=== PATIENT | male | born 1975 | race Caucasian/White ===

== ENCOUNTER 2022-10-17 15:47 | Emergency (ER) | payer SELFPAY ==
--- NOTE | 2022-10-17 15:45 | RT.EKG_ITS ---
APPROVED REPORT Exam: Resting ECG Reason for Exam: chest pain sob Patient Location: E HR:92 bpm ECG Measurements Heart Rate 92 AXIS FL 135 P 61 QRSd 102 QRS 36 QT 341 T 39 QTc 422 Conclusion Sinus rhythm...normal P axis, V-rate 60- 99. Sinus. Normal axis. No STEMI. I have reviewed and interpreted ECG and agree with software generated interpretation.
--- NOTE | 2022-10-17 15:45 | DI.CT_ITS ---
Exam(s) CT HEAD - STROKE PROTOCOL EXAM: CT HEAD - STROKE PROTOCOL CLINICAL HISTORY: slurred speech, r/o acute cva. TECHNIQUE: Imaging Protocol: Axial computed tomography images with coronal and sagittal reformatted images were created and reviewed COMPARISON: No exams were available for comparison FINDINGS: There are no skull fractures. There is no fluid in the visualized paranasal sinuses. There is no evidence of intracranial hemorrhage, mass effect, or shift of midline structures. There are no extra-axial fluid collections. Asymmetry in the size of the lateral ventricles noted which is probably normal variant. There is no blood within the ventricular system nor within the basal ciste rns. IMPRESSION: No acute intracranial findings on this noninfused CT scan of the brain. RADIATION DOSE DELIVERED: 709.66mGy.cm Total DLP DATA REPOSITORY: All CT scans at this facility are submitted to the National Radiology Data Registry (NRDR) Dose Index Registry (DIR) with the [employer] ([employer]). RADIATION OPTIMIZATION: All CT scans at this facility use at least one of these dose optimization te chniques: automated exposure control; mA and/or kV adjustment per patient size (includes targeted exa ms where dose is matched to clinical indication); or iterative reconstruction.
[2022-10-17 15:48] VITALS: BP 123/68; PULSE 92; RESP 18; TEMP 37.4; O2SAT 100
--- NOTE | 2022-10-17 15:48 | DI.RAD_ITS ---
Exam(s) XR CHEST 2V PA LATERAL EXAM: XR CHEST 2V PA LATERAL CLINICAL HISTORY: chest pain, r/o acute disease. TECHNIQUE: 2D digital imaging was performed. COMPARISON: No exams were available for comparison FINDINGS: 2 views: Heart size is normal. The mediastinum is not widened. Lungs are clear. No infiltrates nor pleural effusions. IMPRESSION: No acute pulmonary findings. DATA REPOSITORY: RADIATION DOSE DELIVERED:
[2022-10-17 16:13] LABS: Abs Immature Grans 0.02 10^3/uL (0.0-0.06); Absolute Basophil Count 0.03 10^3/uL (0.0-0.2); Absolute Lymphocyte Count 1.06 10^3/uL (1.2-3.4); Absolute Monocyte Count 0.57 10^3/uL (0.1-0.8); Absolute Neutrophil Count 7.39 10^3/uL (1.2-6.7); Basophils % 0.3; Eosinophils % 1.1; HGB 12.6 g/dL (13.5-17.5); Immature Grans % 0.2; Lymphocytes % 11.6; MCH 25.3 pg (27.0-33.0); MCHC 32.3 % (32.0-36.0); MCV 78 fL (80-95); MPV 9.4 fL (8.0-11.0); Monocytes % 6.2; Neutrophils % 80.6; Platelet Count 358 10^3/uL (130-400); RBC 4.99 10^6/uL (4.36-5.78); RDW 15.8 % (11.8-14.1); RDW-SD 44.4 fL; WBC 9.17 10^3/uL (4.4-10.8)
--- NOTE | 2022-10-17 16:20 | DI.VRAD_ITS ---
PROCEDURE INFORMATION: Exam: CT Head Without Contrast Exam date and time: 10/17/2022 4:12 PM Age: 47 years old Clinical indication: Stroke-like symptoms; Speech disturbance; Additional info: R/O acute CVA TECHNIQUE: Imaging protocol: Computed tomography of the head without contrast. Other technique: STROKE PROTOCOL was implemented. COMPARISON: No relevant prior studies available. FINDINGS: Brain: Normal. No hemorrhage. Unremarkable white matter. No mass effect. Cerebral ventricles: Asymmetry of the ventricular system most likely represents normal variant Paranasal sinuses: Visualized sinuses are unremarkable. No fluid levels. Mastoid air cells: Visualized mastoid air cells are well aerated. Bones/joints: Unremarkable. No acute fracture. Soft tissues: Unremarkable. IMPRESSION: No acute intracranial abnormality. ASSESSMENT: ASPECTS ([place] Stroke Program Early CT Score) is 10. Dictated and Authenticated by: Erendira Sherwood MD. Ordering:KERI Castelan MD
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
[2022-10-17 16:36] LABS: ALT 34 U/L (16-63); AST 26 U/L (15-37); Alkaline Phosphatase 132 U/L (46-116); Anion Gap 7.1 mmol/L (3-11); BUN 18 mg/dL (7-18); Bilirubin, Total 0.2 mg/dL (0.2-1.0); CO2 26.9 mmol/L (21.0-32.0); CREATININE 0.6 mg/dL (0.70-1.30); Calcium 8.7 mg/dL (8.5-10.1); Chloride 103 mmol/L (98-107); Estimated GFR 118.34 (mL/min/1.73m2); Glucose 136 mg/dL (74-106); Lipase 149 U/L (73-393); Potassium 4.5 mmol/L (3.5-5.1); Sodium 137 mmol/L (136-145); Total Protein 7.2 g/dL (6.4-8.2); Troponin I < 50 ng/L (<or=60)
--- OUTSIDE RECORDS SUMMARY | 2022-10-17 16:36 | XMS_ITS | Continuity of Care Document ---
:1975 Author Organization [facility] Address [address] [place] [address]- Care Team Providers Name Role Phone Not on Staff, PCP Primary Care Physician Unavailable Encounter [facility] Date(s): 10/05/22 - 10/06/22 [facility] [address], [place] [address] [place] Discharge Disposition: A-D/C AMA Attending Physician: Talha Devi MD Admitting Physician: Talha Devi MD Referring Physician: Not on Staff, Referring MD Allergies, Adverse Reactions, Alerts Substance Reaction Severity Status Toradol Active Adhesive Bandage Active traMADol Active Medications aspirin 81 mg oral capsule 1 capsule = 81 mg, By Mouth, Every 4 hours, 0 Refills, Maintenance, 10/05/22 18:36:00 EST, Partial fill upon patient request if the prescription is for a schedule II opioid drug. Start Date: 10/05/22 Status: OrderedLipitor 20 mg oral tablet 1 tablet = 20 mg, By Mouth, Daily, # 30 tablet, 0 Refills, Maintenance, 10/05/22 18:36:00 EST, Tablet, Partial fill upon patient request if the prescription is for a schedule II opioid drug. Start Date: 10/05/22 Status: Orderedlisinopril 10 mg oral tablet 10 mg, 1, tablet, By Mouth, Daily, # 30 tablet, Refills 0, Maintenance, 10/05/22 18:35:00 EST, Partial fill upon patient request if the prescription is for a schedule II opioid drug. Start Date: 10/05/22 Status: Orderednitroglycerin 0.3 mg sublingual tablet 1 tablet = 0.3 mg, Sublingual, Every 5 minutes, PRN as needed for chest pain, not to exceed 3 doses/15 min--if pain persists, seek medical attention, # 100 tablet, 0 Refills, Maintenance, 10/05/22 18:36:00 EST, Tablet, Partial fill upon patient reques... Start Date: 10/05/22 Status: Ordered Results Radiology Reports Exam Date Time Procedure Performing Provider Status 10/05/22 1:[address] Angio Neck Hyperacute Lis Powell; Don (Verified) Stroke Notes:(CT Angio Neck Hyperacute Stroke) Reason For Exam: Aneurysm, neck vessel(s);Other:RESULT: CT Angio Neck Hyperacute Stroke CT Angio Head Hyperacute Stroke, CT Angio Neck Hyperacute Stroke Hx of Present Illness: STROKE alert, chest pain, slurred speech left sided weakness started at 1230pm; Reason: Other:; Stroke; Clinical Question(s): Other:; Hematoma Aneurysm / Other: TECHNIQUE: CT angiogram of the head and neck was performed after bolus administration of intravenouscontrast. 100 mL of Omnipaque 300 was administered intravenously. Coronal and sagittal MIP reformatted images were obtained. Additional 3-D images were created on a separate workstation under concurrent supervision by the attending radiologist. All stenoses are measured using NASCET criteria. Weight-based protocol using automatic tube modulation was used to optimize exposure parameters. CTDIvol Body: 16.00 mGy, DLP Body: 752 mGy*cm. COMPARISON: Noncontrast CT head performed concurrently. FINDINGS: CTA OF THE NECK: Arch: There is a three vessel aortic arch. The origins of the supra aortic vessels are patent. Right carotid system: The common carotid and cervical internal carotid arteries are patent. No stenosis (0%) by NASCET criteria. There is no dissection or aneurysm. Left carotid system: The common carotid and cervical internal carotid arteries are patent. No stenosis (0%) by NASCET criteria. There is no dissection or aneurysm. There is a left-dominant vertebral artery system. Right vertebral: No significant stenosis. No evidence of dissection or aneurysm. Left vertebral: No significant stenosis. No evidence of dissection or aneurysm. Other: Soft tissues and bones: No evidence of lymphadenopathy or mass. Subcentimeter thyroid nodularity, not requiring follow-up given the small size. Visualized lung apices are clear. Mild degenerative changes of the cervical spine are noted, without acute osseous abnormality. CTA OF THE HEAD: Anterior circulation: Bilateral intracranial ICAs and their OSCAR and MCA branches are patent. There is no significant stenosis, proximal cutoff, aneurysm, or vascular malformation. Posterior circulation: Bilateral intracranial vertebral arteries, the basilar artery, and bilateral superior cerebellar and posterior cerebral branches are patent. There is partial supply to bothPCAs with hypoplastic P1 segment on each side. There is no significant stenosis, proximal cutoff, aneurysm, or vascular malformation. Veins: Major dural venous sinuses are patent. Other: Soft tissues and bones: No midline shift or effacement of the basal cisterns. No space-occupying hemorrhage. No territorial loss of berger-white matter differentiation. Orbits are unremarkable. No significant opacification in the paranasal sinuses or mastoid air cells.Multiple dental caries and periapical lucencies are noted. IMPRESSION: No proximal occlusion or high grade stenosis in the major arteries of the head and neck. WSN: [id number] Ordering Physician: Hetal Diallo Dictated By: Piper Salgado MD Dictated Date/Time: 10/05/22 4:21 pm Reviewed By: Piper Salgado MD Signed By: Piper Salgado MD Signed Date/Time: 10/05/22 4:21 pm Transcribed By: RENNY Transcribed Date/Time: 10/05/22 1:33 pm Exam Date Time Procedure Performing Provider Status 10/05/22 1:[address] Angio Head Hyperacute Lis Powell (Verified) Stroke Notes:(CT Angio Head Hyperacute Stroke) Reason For Exam: Stroke;Other:RESULT: CT Angio Head Hyperacute Stroke CT Angio Head Hyperacute Stroke, CT Angio Neck Hyperacute Stroke Hx of Present Illness: STROKE alert, chest pain, slurred speech left sided weakness started at 1230pm; Reason: Other:; Stroke; Clinical Question(s): Other:; Hematoma Aneurysm / Other: TECHNIQUE: CT angiogram of the head and neck was performed after bolus administration of intravenouscontrast. 100 mL of Omnipaque 300 was administered intravenously. Coronal and sagittal MIP reformatted images were obtained. Additional 3-D images were created on a separate workstation under concurrent supervision by the attending radiologist. All stenoses are measured using NASCET criteria. Weight-based protocol using automatic tube modulation was used to optimize exposure parameters. CTDIvol Body: 16.00 mGy, DLP Body: 752 mGy*cm. COMPARISON: Noncontrast CT head performed concurrently. FINDINGS: CTA OF THE NECK: Arch: There is a three vessel aortic arch. The origins of the supra aortic vessels are patent. Right carotid system: The common carotid and cervical internal carotid arteries are patent. No stenosis (0%) by NASCET criteria. There is no dissection or aneurysm. Left carotid system: The common carotid and cervical internal carotid arteries are patent. No stenosis (0%) by NASCET criteria. There is no dissection or aneurysm. There is a left-dominant vertebral artery system. Right vertebral: No significant stenosis. No evidence of dissection or aneurysm. Left vertebral: No significant stenosis. No evidence of dissection or aneurysm. Other: Soft tissues and bones: No evidence of lymphadenopathy or mass. Subcentimeter thyroid nodularity, not requiring follow-up given the small size. Visualized lung apices are clear. Mild degenerative changes of the cervical spine are noted, without acute osseous abnormality. CTA OF THE HEAD: Anterior circulation: Bilateral intracranial ICAs and their OSCAR and MCA branches are patent. There is no significant stenosis, proximal cutoff, aneurysm, or vascular malformation. Posterior circulation: Bilateral intracranial vertebral arteries, the basilar artery, and bilateral superior cerebellar and posterior cerebral branches are patent. There is partial supply to bothPCAs with hypoplastic P1 segment on each side. There is no significant stenosis, proximal cutoff, aneurysm, or vascular malformation. Veins: Major dural venous sinuses are patent. Other: Soft tissues and bones: No midline shift or effacement of the basal cisterns. No space-occupying hemorrhage. No territorial loss of berger-white matter differentiation. Orbits are unremarkable. No significant opacification in the paranasal sinuses or mastoid air cells.Multiple dental caries and periapical lucencies are noted. IMPRESSION: No proximal occlusion or high grade stenosis in the major arteries of the head and neck. WSN: [id number] Ordering Physician: Hetal Diallo Dictated By: Piper Salgado MD Dictated Date/Time: 10/05/22 4:21 pm Reviewed By: Piper Salgado MD Signed By: Piper Salgado MD Signed Date/Time: 10/05/22 4:21 pm Transcribed By: RENNY Transcribed Date/Time: 10/05/22 1:33 pm Exam Date Time Procedure Performing Provider Status 10/05/22 1:[address] Head-Hyper Acute Stroke Lis Powell; Auth (Verified) Notes:(CT Head-Hyper Acute Stroke) Reason For Exam: Neuro deficit, acute, stroke suspected;Other:RESULT: CT Head-Hyper Acute Stroke CT Head-Hyper Acute Stroke INDICATION: Hx of Present Illness: STREOKE alert, chest pain, slurred speech left sided weakness started at 1230pm; Reason: Other:; Neuro deficit, acute, stroke suspected; Clinical Question(s): Other:;Hematoma Infarction TECHNIQUE: Noncontrast head CT using axial technique and reconstructed in axial and coronal planes. Iterative reconstruction techniques are used to optimize dose and image quality. CTDIvol Head: 46.80 mGy, DLP Head: 774 mGy*cm. COMPARISON: None. FINDINGS: The visualized sinuses are free from disease. Asymmetry of the left lateral ventricle is likely a normal variant. There is no intracranial hemorrhage, mass effect, or midline shift. No intra-axial fluid collections are identified. The osseous structures are intact. IMPRESSION: There is no acute intracranial abnormality. WSN: [id number] Ordering Physician: Hetal Diallo Dictated By: Annelise Ji MD Dictated Date/Time: 10/05/22 1:20 pm Reviewed By: Annelise Ji MD Signed By: Annelise Ji MD Signed Date/Time: 10/05/22 1:20 pm Transcribed By: RENNY Transcribed Date/Time: 10/05/22 1:18 pm Vital Signs Most recent to oldest 1 2 3 [Reference Range]: Height 185 cm (10/05/22 5:08 PM) Weight 74.5 kg 74.5 kg (10/05/22 6:39 PM) (10/05/22 5:08 PM) Oxygen Saturation [94-100 %] 91 % 91 % 96 % *L* *L* (10/06/22 2:00 A M) (10/06/22 4:00 AM) (10/06/22 3:00 AM) Pulse Rate [55-90 bpm] 84 bpm 89 bpm 73 bpm (10/05/22 5:08 PM) (10/05/22 4:18 PM) (10/05/22 3:45 PM) Body Mass Index [18.5-24.99 21.77 kg/m2 kg/m2] (10/05/22 5:08 PM) Blood Pressure [90-138/55-84 102/63 mm Hg 105/80 mm Hg 101 /66 mm Hg mm Hg] (10/06/22 4:00 AM) (10/06/22 3:00 AM) (10/06/22 2:00 AM) Respiratory Rate [16-30 18 br/min 17 br/min 18 br/mi n br/min] (10/06/22 4:00 AM) (10/06/22 3:00 AM) (10/06/22 2:00 AM) Temperature [96.8-100.4 98.2 DegF 98.4 DegF 97.9 Deg F DegF] (10/05/22 8:00 PM) (10/05/22 5:08 PM) (10/05/22 2:46 PM) Mode of Delivery (Oxygen) Room air Room air Room a ir (10/06/22 4:00 AM) (10/06/22 3:00 AM) (10/06/22 2:00 AM) Blood pressure sites Arm, right Arm, right Arm, right (10/06/22 4:00 AM) (10/06/22 3:00 AM) (10/06/22 2:00 AM) Temperature Route Oral Oral Oral (10/05/22 8:00 PM) (10/05/22 5:08 PM) (10/05/22 2:46 PM) Dry Weight 74.5 kg (10/05/22 5:08 PM) Weight Obtained Via Bed scale Bed scale (10/05/22 6:39 PM) (10/05/22 5:08 PM) Admission evaluation note Pradeep SCHROEDER, Juan Sandoval: PERFORM, MODIFY, MODIFY Event Display: Admission Note Authored Date: Patient: ??CHA ARIAS ? Age:??47 Years?Sex:??Male?:??1975?? Chief Complaint/Reason for Consultation from Jessie, sudden onset chest pressure radiating to L arm, cardiac hx, ran out of Nitro recently, denies SOB, given ASA and Nitro in route History of Present Illness Cha is a 47-year-old male with PMH significant for prior CVA (2018 and 2019 for left-sided weakness with symptoms resolving in 24 hours, received tPA in [place]) hypertension, hyperlipidemia and current cigarette smoker who presented to ED with left-sided weakness, received tenecteplase and has been transferred to ICU for close monitoring. ?? According the patient, he was on a shopping trip to [place] in [place] where he bought new gloves.?? He was having a great time, walking out to the [facility] next-door but then he fell to the ground due to significant left- sided weakness.?? Preceding that he also had some chest pain.?? Of note, patient does have occasional chest pain, did not describe any typical symptoms but does take sublingual nitroglycerin/once a month.?? He also repeated decree sensation on the left side of the face and the tingling sensation in the left leg.?? Reports smoking a pack of cigarettes a day, has smoked for many years with no intentions to stop smoking.?? He is compliant with his medications.?? Did inquire about the difference in tenecteplase andtPA.?? 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 Very adamant and requesting an order for a regular diet with anika ble portions. ?? The ED, acute stroke was activated and patient was taken to CAT scan.?? CT angio did not show any acute large vessel occlusion or stenosis.?? He also developed a right-sided headache at the same time which was different from his migraine headaches.?? Evaluated by neuro stroke team with recommendations for tenecteplase.?? Administration time 1405 Review of Systems Detailed review of system appears to be unremarkable except what has been mentioned above. Objective Measurements?? Height: 185 cm (10/05/22) Weight: 74.5 kg (10/05/22) Dry Weight: 74.5 kg (10/05/22) Body Mass Index: 21.77 kg/m2 (10/05/22) ? Vital Signs?? Temperature: 98.2 DegF (10/05/22 20:00:00) Temperature Route: Oral (10/05/22 20:00:00) Pulse Rate: 84 bpm (10/05/22 17:08:00) Heart Rate Monitored: 82 bpm (10/05/22 21:30:00) Respiratory Rate: 20 br/min (10/05/22 21:30:00) Vented: No (10/05/22 21:30:00) Systolic Blood Pressure: 116 mm Hg (10/05/22 21:30:00) Diastolic Blood Pressure: 80 mm Hg (10/05/22 21:30:00) Blood pressure sites: Arm, right (10/05/22 21:30:00) Mean Arterial Pressure: 90 mm Hg (10/05/22 17:08:00) Pulse Pressure: 36 mm Hg (10/05/22:30:00) Oxygen Saturation: 95 % (10/05/22:30:00) Mode of Delivery (Oxygen): Room air (10/05/22:30:00) Early Warning Score: 9 (10/05/22 16:19:15) ? Physical Exam Gen: NAD HEENT: No acute trauma.?? Extraocular muscle??movements intact. ??No nystagmus. ??Pupils reactive Lungs:??Normal to auscultation. ??Equal air entry. ??No wheezing Abd: soft, NT/ND Neuro Exam Mental status: Alert and oriented. ??No dysarthria.?Cranial nerves intact Strength: RUE/RLE 5/5. LUE 1/5, LLE 1/5.??when testing for hoovers I did find he used less downwardpressure when lifting up his L leg compared to lifting up his R leg.??normal bulk and tone. no abnormal movements. Sensation: sensation to LT intact but reports less and tingly/numb on the LUE/LLE Assessment/Plan Cha is a 47-year-old male with PMH significant for prior CVA (2018 and 2019 for left-sided weaknesswith symptoms resolving in 24 hours, received tPA in [place]) hypertension, hyperlipidemia and current cigarette smoker who presented to ED with left-sided weakness, received tenecteplase and has been transferred to ICU for close monitoring. ?? Concern for right hemispheric stroke Left-sided upper lower extremity weakness Complex migraine versus conversion Patient reports a history of strokes in 2019 and 2019 with left body weakness and loss of sensation.?? He was in [place] and received tPA therapy twice.?? He had similar symptoms today which led toa fall and preceded by chest pain.?? CT done that ruled out any cardiovascular etiologies.?? Chest pain did not recur. CT head with no acute abnormalities and CTA with no clear occlusion, received tenecteplase after evaluation by neuro team with NIHSS score 11. He tells me he never had an MRI or any evidence of evolving strokes on imaging in the past.?? He has claustrophobia and he would need to be intubated and sedated to get an MRI.?? There would be no alternative to that which is the very reason he has not had imaging after. Risk factors: Hyperlipidemia, hypertension, current cigarette smoker ?? Plan ??? Admitted to ICU post thrombolytic therapy for monitoring ??? Neurochecks every 30 minutes for 6 hours and then 1 hour for 16 hours ??? Swallow passed.?? Diet progress ??? BP goal less than 180/105 ??? No antiplatelet/anticoagulation therapy including no DVT prophylaxis for [address] head obtained ??? As needed Tylenol for fever ??? Continuous telemetry monitoring ??? TTE with bubble study ordered ? PM&R consult placed ??? Cigarette smoking counseling provided.?? Patient not interested ??? Add on lipid panel and A1c ??? Would have to have a discussion if MRI is absolutely necessary. ?? Quality Metrics Code Status:??Full code DVT prophylaxis:??On hold. ??Pneumatic compression boots. ??Can resume if CT head??24 hours post??tenecteplase therapy stable Diet:??Regular with double portions as per patient request ?? The patient case was discussed with attending physician. ?? Juan Fernández Internal Medicine Resident PGY3 ?? This note was dictated??by [employer] voice detection software,??for any errors??or clarifications, please do not hesitate to connect with the scribe.? Histories Allergies Allergies ?(Active and Proposed Allergies Only) Adhesive Bandage? (Severity: Unknown severity, Onset: Unknown) traMADol? (Severity: Unknown severity, Onset: Unknown) Toradol? (Severity: Unknown severity, Onset: Unknown) ?Reactions: Tramadol ? Past Medical History/Problem List Hypertension Hyperlipidemia Previous stroke AR ? Past Surgical History Angiogram, did not have angioplasty/stent placement ? 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 Family History Hypertension hyperlipidemia ? Medications Home Medications Aspirin (aspirin 81 mg oral capsule)?1?capsule?81?Milligram?By Mouth?Every 4 hours Atorvastatin (Lipitor 20 mg oral tablet)?1?tab(s)?20?Milligram?By Mouth?Daily Lisinopril (lisinopril 10 mg oral tablet)?10?Milligram?1?tablet?By Mouth?Daily Nitroglycerin (nitroglycerin 0.3 mg sublingual tablet)?1?tab(s)?0.3?Milligram?Sublingual?Every 5 minutes?as needed?as needed for chest pain?not to exceed 3 doses/15 min--if pain persists, seek medical attention ? Results Recent Labs BLOOD BANK Blood Type A Positive ()?? 10/05/2022 13:00 Antibody Screen Negative ()?? 10/05/2022 13:00 ?? BLOOD COUNT & DIFF WBC 2.4 k/mm3 (Low)?? 10/05/2022 13:34 RBC 3.33 m/mm3 (Low)?? 10/05/2022 13:34 Hgb 8.5 Gm/dL (Low)?? 10/05/2022 13:34 Hct 26.6 % (Low)?? 10/05/2022 13:34 MCV 79.9 femtoliters (Low)?? 10/05/2022 13:34 MCH 25.5 pg (Low)?? 10/05/2022 13:34 MCHC 32.0 g/dL (Low)?? 10/05/2022 13:34 Platelet Count 71 k/mm3 (Low)?? 10/05/2022 13:34 RDW-SD 44.8 femtoliters ()?? 10/05/2022 13:34 MPV 9.9 femtoliters ()?? 10/05/2022 13:34 Nucleated RBC (Automated) 0.0 #/100 WBC'S ()?? 10/05/2022 13:34 Abs. NRBC 0.0 k/mm3 ()?? 10/05/2022 13:34 Abs. Neut 1.5 k/mm3 ()?? 10/05/2022 13:34 Abs. Lymph 0.6 k/mm3 (Low)?? 10/05/2022 13:34 Abs. [place] 0.3 k/mm3 (Low)?? 10/05/2022 13:34 Abs. Eo 0.0 k/mm3 ()?? 10/05/2022 13:34 Abs. Baso 0.0 k/mm3 ()?? 10/05/2022 13:34 Neut % 61.5 % ()?? 10/05/2022 13:34 Lymph % 24.3 % ()?? 10/05/2022 13:34 [place] % 11.7 % (High)?? 10/05/2022 13:34 Eos % 1.7 % ()?? 10/05/2022 13:34 Baso % 0.4 % ()?? 10/05/2022 13:34 Imm Gran 0.4 % ()?? 10/05/2022 13:34 Abs. Imm Gran 0.0 k/mm3 ()?? 10/05/2022 13:34 ?? CARDIAC High Sensitivity Troponin (HSTnT) 9 ng/L ()?? 10/05/2022 13:00 ?? CHEM GENERAL Sodium 135 mmol/L ()?? 10/05/2022 13:34 Potassium 4.7 mmol/L ()?? 10/05/2022 13:34 Chloride 101 mmol/L ()?? 10/05/2022 13:34 Bicarbonate Level 24 mmol/L ()?? 10/05/2022 13:34 Anion Gap 10 ()?? 10/05/2022 13:34 Glucose Level 94 mg/dL ()?? 10/05/2022 13:34 Glucose, POC 97 mg/dL ()?? 10/05/2022 12:55 BUN 10 mg/dL ()?? 10/05/2022 13:34 Creatinine-Blood 0.6 mg/dL (Low)?? 10/05/2022 13:34 Estimated GFR Creatinine 118 ML/MIN/1.73 M2 ()?? 10/05/2022 13:34 Calcium 9.5 mg/dL ()?? 10/05/2022 13:34 AST (SGOT) 24 units/L ()?? 10/05/2022 13:34 ?? COAG INR 1.1 ()?? 10/05/2022 13:34 Protime (PT) 11.2 seconds ()?? 10/05/2022 13:34 APTT 25.8 seconds ()?? 10/05/2022 13:34 ?? LIPID STUDIES Cholesterol 106 mg/dL ()?? 10/05/2022 13:34 Triglycerides 54 mg/dL ()?? 10/05/2022 13:34 HDL Cholesterol 51 mg/dL ()?? 10/05/2022 13:34 LDL Cholesterol 44 mg/dL ()?? 10/05/2022 13:34 Non HDL Cholesterol 55 mg/dL ()?? 10/05/2022 13:34 ?? VIROLOGY Influenza A PCR NEGATIVE ()?? 10/05/2022 14:17 Influenza B PCR NEGATIVE ()?? 10/05/2022 14:17 RSV PCR NEGATIVE ()?? 10/05/2022 14:17 COVID-19 PCR Specimen Source NASAL ()?? 10/05/2022 14:17 COVID-19 PCR Result NEGATIVE ()?? 10/05/2022 14:17 ? Abnormal Labs ?? BLOOD BANK ??Antibody Screen ??Negative () ??10/05/2022 13:00 ??Blood Type ??A Positive () ??10/05/2022 13:00 ? BLOOD COUNT & DIFF ??Abs. Imm Gran ??0.0 k/mm3 () ??10/05/2022 13:34 ??Abs. Lymph ??0.6 k/mm3 (Low) ??10/05/2022 13:34 ??Abs. [place] ??0.3 k/mm3 (Low) ??10/05/2022 13:34 ??Abs. NRBC ??0.0 k/mm3 () ??10/05/2022 13:34 ??Hct ??26.6 % (Low) ??10/05/2022 13:34 ??Hgb ??8.5 Gm/dL (Low) ??10/05/2022 13:34 ??Imm Gran ??0.4 % () ??10/05/2022 13:34 ??MCH ??25.5 pg (Low) ??10/05/2022 13:34 ??MCHC ??32.0 g/dL (Low) ??10/05/2022 13:34 ??MCV ??79.9 femtoliters (Low) ??10/05/2022 13:34 ??[place] % ??11.7 % (High) ??10/05/2022 13:34 ??Nucleated RBC (Automated) ??0.0 #/100 WBC'S () ??10/05/2022 13:34 ??Platelet Count ??71 k/mm3 (Low) ??10/05/2022 13:34 ??RBC ??3.33 m/mm3 (Low) ??10/05/2022 13:34 ??RDW-SD ??44.8 femtoliters () ??10/05/2022 13:34 ??WBC ??2.4 k/mm3 (Low) ??10/05/2022 13:34 ? CARDIAC ??High Sensitivity Troponin (HSTnT) ??9 ng/L () ??10/05/2022 13:00 ? CHEM GENERAL ??Creatinine-Blood ??0.6 mg/dL (Low) ??10/05/2022 13:34 ??Estimated GFR Creatinine ??118 ML/MIN/1.73 M2 () ??10/05/2022 13:34 ? LIPID STUDIES ??Cholesterol ??106 mg/dL () ??10/05/2022 13:34 ??HDL Cholesterol ??51 mg/dL () ??10/05/2022 13:34 ??Non HDL Cholesterol ??55 mg/dL () ??10/05/2022 13:34 ??Triglycerides ??54 mg/dL () ??10/05/2022 13:34 ? VIROLOGY ??COVID-19 PCR Specimen Source ??NASAL () ??10/05/2022 14:17 ??COVID-19 PCR Result ??NEGATIVE () ??10/05/2022 14:17 ??Influenza A PCR ??NEGATIVE () ??10/05/2022 14:17 ??Influenza B PCR ??NEGATIVE () ??10/05/2022 14:17 ??RSV PCR ??NEGATIVE () ??10/05/2022 14:17 ? Note: Critical results are displayed in red. ? EKG study Event Display: ECG 12-Lead Authored Date: Please click on pdf link to open report Event Display: ECG 12-Lead Authored Date: Ventricular Rate: 74 BPM Atrial Rate: 74 BPM P-R Interval: 126 ms QRS Duration: 102 ms Q-T Interval: 384 ms QTC Calculation(Bazett): 426 ms P [place]: 27 degrees R [place]: 32 degrees T [place]: 38 degrees Normal sinus rhythm Normal ECG When compared with ECG of 29-OCT-2013 16:30, No significant change was found Confirmed by TRAN SCHROEDER, [facility] ([id number]) on 10/05/2022 1:43:08 PM [place]: [facility] Progress note Justina Hawkins RN: MODIFY, SIGN, VERIFY, PERFORM Event Display: [facility] Authored Date: Patient: CHA ARIAS Age: 47 years Sex: Male : 1975 Associated Diagnoses: None Author: Justina Hawkins RN Findings Problem Related to Reviewed Results: Alteration in Neurological : Alteration in Neurological Function/new(Date Range: 10/04/2022 0:00 EST - 10/06/2022 1:25 EST). Evaluation P:Alteration in neuro I:See iview E:Patient is obeying commands,oriented. Refusing pupil check.04:30 hrs, patient insisted of going home, informed MD and charge nurse.AMA form signed by the patient.Peripheral iv two present was removedbefore patient left. All the belonging present at bedside taken by the patient.Ewscorted the patient downstairs to the security..Shae Loaiza RN: PERFORM, SIGN, VERIFY Event Display: Progress Note Hospital Authored Date: Patient: CHA ARIAS Age: 47 years Sex: Male : 1975 Associated Diagnoses: None Author: Shae Loaiza RN Findings Problem Related to Alteration in Neurological : Alteration in Neurological Function/new 10/05/2022 21:00 EST Alteration in Neuro status Related to Acute Stroke (CVA) Goals & Outcomes, Neurological Pt is safe with transfers & activities, Pt will be Neurologically stable, Pt will become pain free with appropriate intervention, Pt will maintain intact skin integrity, Pt will remain free from injury, Pt will demonstrate safe transfers, Pt will demonstrate useof adaptive equipment, Pt will be without signs of aspiration, Pt/caregiver will be able to describes/s of TIA/Stroke Interventions, Neurological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
--- OUTSIDE RECORDS SUMMARY | 2022-10-17 16:36 | XMS_ITS | Continuity of Care Document ---
:1975 Author Organization [facility] Address [address] [place] [address] Encounter Date(s): 09/24/22 - 09/24/[address] [address] [place] Encounter Diagnosis Abdominal pain (Discharge Diagnosis) - 09/24/22 Discharge Disposition: Home or Self Care Attending Physician: Ling Hernandez DO Allergies, Adverse Reactions, Alerts Substance Reaction Severity Status Toradol Hives Moderate Active Rash traMADol Hives Moderate Active Rash Assessment and Plan Diagnostic Tests PendingUrinalysis with Microscopic if Indicated 09/24/22 Medications aspirin 81 mg, 0 Refill(s) Start Date: 09/24/22 Status: OrderedLipitor 20 mg oral tablet 20 mg = 1 tab, Oral, Daily, # 30 tab, 0 Refill(s) Start Date: 09/24/22 Status: Orderedlisinopril 10 mg oral tablet 10 mg = 1 tab, Oral, Daily, # 30 tab, 0 Refill(s) Start Date: 09/24/22 Status: Orderednitroglycerin 0.4 mg sublingual tablet 0.4 mg = 1 tab, SL, every 5 min, PRN as needed for chest pain, # 100 tab, 0 Refill(s) Start Date: 09/24/22 Status: Ordered Problem List Condition Effective Dates Status Health Status Informant Tobacco use(Confirmed) Active Results Laboratory List Name Date CBC w/ Diff 09/24/22 Comprehensive Metabolic Panel (CMP) 09/24/22 Lipase Level 09/24/22 Magnesium Level 09/24/22 Hematology Most recent to oldest [Reference Range]: 1 WBC [4.00-10.10 x10^3/mcL] 5.13 x10^3/mcL (09/24/22 5:05 AM) RBC [4.30-6.10 x10^6/mcL] 4.83 x10^6/mcL (09/24/22 5:05 AM) Hgb [13.7-17.5 g/dL] 12.5 g/dL *LOW* (09/24/22 5:05 AM) Hct [40.0-51.0 %] 38.4 % *LOW* (09/24/22 5:05 AM) MCV [79.0-95.0 fL] 79.5 fL (09/24/22 5:05 AM) MCH [26.0-32.0 pg] 25.9 pg *LOW* (09/24/22 5:05 AM) MCHC [32.0-36.0 g/dL] 32.6 g/dL (09/24/22 5:05 AM) RDW-CV [11.6-15.4 %] 15.9 % *HI* (09/24/22 5:05 AM) RDW-SD [35.0-48.0 fL] 45.6 fL (09/24/22 5:05 AM) Mean Platelet Volume [9.4-12.4 fL] 9.1 fL *LOW* (09/24/22 5:05 AM) Platelets [150-400 x10^3/mcL] 362 x10^3/mcL (09/24/22 5:05 AM) Neutro Auto [35.0-70.0 %] 57.8 % 1 (09/24/22 5:05 AM) Lymph Auto [20.0-53.0 %] 25.5 % (09/24/22 5:05 AM) [place] Auto [4.0-13.0 %] 13.8 % *HI* (09/24/22 5:05 AM) Eos, Auto [0.7-7.0 %] 2.5 % (09/24/22 5:05 AM) Basophil Auto [0.1-2.0 %] 0.2 % (09/24/22 5:05 AM) Neutro Abs Auto (ANC) [1.60-6.10 x10^3/mcL] 2.96 x10^3 /mcL (09/24/22 5:05 AM) Lymph Abs Auto [1.20-3.80 x10^3/mcL] 1.31 x10^3/mcL (09/24/22 5:05 AM) [place] Abs Auto [0.20-0.82 x10^3/mcL] 0.71 x10^3/mcL (09/24/22 5:05 AM) Eos Abs Auto [0.04-0.54 x10^3/mcL] 0.13 x10^3/mcL (09/24/22 5:05 AM) Baso Abs Auto [0.01-0.08 x10^3/mcL] 0.01 x10^3/mcL (09/24/22 5:05 AM) NRBC Auto [0.0-0.2 %] 0.0 % (09/24/22 5:05 AM) NRBC Abs Auto [0.00-0.01 x10^3/mcL] 0.00 x10^3/mcL (09/24/22 5:05 AM) Imm Gran [0.0-1.0 %] 0.2 % (09/24/22 5:05 AM) Imm Gran Abs Auto [0.00-0.10 x10^3/mcL] 0.01 x10^3/mcL (09/24/22 5:05 AM) 1Result Comment: Bands and/or Atypical Lymphs are within reference range. Chemistry Most recent to oldest [Reference Range]: 1 Sodium Level [137-145 mmol/L] 138 mmol/L (09/24/22 5:05 AM) Potassium Level [3.5-5.1 mmol/L] 4.1 mmol/L (09/24/22 5:05 AM) Chloride Level [98-107 mmol/L] 104 mmol/L (09/24/22 5:05 AM) CO2 [22-30 mmol/L] 25 mmol/L (09/24/22 5:05 AM) Glucose Level [70-100 mg/dL] 100 mg/dL 1 (09/24/22 5:05 AM) BUN [9-20 mg/dL] 16 mg/dL (09/24/22 5:05 AM) Creatinine [0.66-1.25 mg/dL] 0.68 mg/dL (09/24/22 5:05 AM) Calcium Level Total [8.6-10.3 mg/dL] 9.1 mg/dL (09/24/22 5:05 AM) Protein Total [6.5-8.5 g/dL] 7.3 g/dL (09/24/22 5:05 AM) Albumin Level [3.5-5.0 g/dL] 4.5 g/dL (09/24/22 5:05 AM) Bilirubin Total [0.2-1.3 mg/dL] 0.3 mg/dL (09/24/22 5:05 AM) Alkaline Phosphatase [38-126 U/L] 125 U/L (09/24/22 5:05 AM) AST [17-59 U/L] 28 U/L (09/24/22 5:05 AM) ALT [0-49 U/L] 26 U/L 2 (09/24/22 5:05 AM) eGFR [Greater than 60 mL/min/1.73 m2] SEE COMMENT mL/m in/1.73 m2 3 (09/24/22 5:05 AM) Lipase Level [23-300 U/L] 260 U/L (09/24/22 5:05 AM) Magnesium Level [1.6-2.3 mg/dL] 2.1 mg/dL (09/24/22 5:05 AM) 1Result Comment: Biased results may occur for patients who have been administered these interfering substances: N-Acetylcysteine (NAC), Dextran 40, and Glutathione.2Result Comment: The reference range displayed is for adult patients. There is no established reference range for pediatric patients.3Result Comment: Greater than 60 Effective June 07, 2022, in accordance with the recommendations from the NKF-ASN Task Force, the laboratory updated its eGFR calculation to the 2020 CKD-EPI creatinine equation that estimates kidney function without a race variable. Clinical judgement must be applied when evaluating this result as it applies only to adults with normal kidney function. Vital Signs Most recent to oldest [Reference Range]: 1 2 Blood Pressure [90-120/60-80 mmHg] 125/82 mmHg 125/8 2 mmHg *HI* *HI* (09/24/22 7:13 AM) (09/24/22 4:38 AM) Temperature Oral [36-38 degC] 36.7 degC (09/24/22 4:38 AM) Peripheral Pulse Rate [60-100 bpm] 82 bpm (09/24/22 4:38 AM) Heart Rate Monitored [60-100 bpm] 71 bpm (09/24/22 7:13 AM) Level of Consciousness Alert (09/24/22 4:38 AM) Orientation Assessment Oriented x 3 Oriented x 3 (09/24/22 5:17 AM) (09/24/22 4:38 AM) Social History Social History Type Response Smoking Status 5-9 cigarettes (between 1/4 to 1/2 pack)/day in last 30 days; Type: Cigarettes; Never; Ready to change: No; Number of years: 39; entered on: 09/24/22 Sex Male Hospital Discharge Instructions Patient [id number]/02/2022 07:23:43Abdominal Pain, AdultAbdominal Pain, Adult Pain in the abdomen (abdominal pain) can be caused by many things. Often, abdominal pain is not serious and it gets better with no treatment or by being treated at home. However, sometimes abdominal pain is serious. Your health care provider will ask questions about your medical history and do a physical exam to try to determine the cause of your abdominal pain. Follow these instructions at home: Medicines ??? Take [id number] and prescription medicines only as told by your health care provider. ??? Do not take a laxative unless told by your health care provider. General instructions ??? Watch your condition for any changes. ??? Drink enough fluid to keep your urine pale yellow. ??? Keep all follow-up visits as told by your health care provider. This is important. Contact a health care provider if: ??? Your abdominal pain changes or gets worse. ??? You are not hungry or you lose weight without trying. ??? You are constipated or have diarrhea for more than 2???3 days. ??? You have pain when you urinate or have a bowel movement. ??? Your abdominal pain wakes you up at night. ??? Your pain gets worse with meals, after eating, or with certain foods. ??? You are vomiting and cannot keep anything down. ??? You have a fever. ??? You have blood in your urine. Get help right away if: ??? Your pain does not go away as soon as your health care provider told you to expect. ??? You cannot stop vomiting. ??? Your pain is only in areas of the abdomen, such as the right side or the left lower portion of the abdomen. Pain on the right side could be caused by appendicitis. ??? You have bloody or black stools, or stools that look like tar. ??? You have severe pain, cramping, or bloating in your abdomen. ??? You have signs of dehydration, such as: ??? Dark urine, very little urine, or no urine. ??? Cracked lips. ??? Dry mouth. ??? Sunken eyes. ??? Sleepiness. ??? Weakness. ??? You have trouble breathing or chest pain. Summary ??? Often, abdominal pain is not serious and it gets better with no treatment or by being treated athome. However, sometimes abdominal pain is serious. ??? Watch your condition for any changes. ??? Take [id number] and prescription medicines only as told by your health care provider. ??? Contact a health care provider if your abdominal pain changes or gets worse. ??? Get help right away if you have severe pain, cramping, or bloating in your abdomen. This information is not intended to replace advice given to you by your health care provider. Make sure you discuss any questions you have with your health care provider. Document Released: 07/20/2006 Document Revised: 02/18/2020 Document Reviewed: 02/18/2020 Elsevier Patient Education ?? 2019 [employer] Follow Up Care09/24/2022 04:31:50With:[facility] Address: [address] [place] [phone] When:3 to 5 days
[2022-10-17] MEDS: Acetaminophen 500 MG TAB 1000 MG PO (17:22)
[2022-10-17] MEDS: Famotidine 20 MG TAB PO (17:23)
[2022-10-17 17:24] LABS: COVID-19 PCR Negative (Negative); Influenza A PCR Negative (Negative); Influenza B PCR Negative (Negative); RSV PCR Negative (Negative)
[2022-10-17 17:25] LABS: Source Nasopharynx
[2022-10-17 17:34] LABS: D-Dimer 261 ng/mlFEU (<500)
--- NOTE | 2022-10-17 18:30 | RT.EKG_ITS ---
APPROVED REPORT Exam: Resting ECG Reason for Exam: chest pain Patient Location: E HR:83 bpm ECG Measurements Heart Rate 83 AXIS [place] 128 P 64 QRSd 106 QRS 66 QT 364 T 36 QTc 428 Conclusion Sinus rhythm...normal P axis, V-rate 60- 99. Sinus. Normal axis. No STEMI. I have reviewed and interpreted ECG and agree with software generated interpretation.
[2022-10-17 18:39] LABS: Troponin I < 50 ng/L (<or=60)
== END 2022-10-17 19:12 | disposition home or self-care (01) ==
PROVIDERS: Emergency Provider Physician Assistant
DX: R07.89 Other chest pain (principal); R51.9 Headache, unspecified; Z59.00 Homelessness unspecified; Z20.822 Contact with and (suspected) exposure to COVID-19; R06.02 Shortness of breath; I10 Essential (primary) hypertension; R47.81 Slurred speech; R29.810 Facial weakness; R20.2 Paresthesia of skin; R20.0 Anesthesia of skin
CPT/HCPCS: 80053; 83690; 87637; 93005; 96361; 96374; 96375; 99284; 70450; 71046; 83735; 84484; 85025; 85379; 93010